=== PATIENT | female | born 1970 ===

== ENCOUNTER 2018-08-27 08:17 | Outpatient (CLI) | payer OTHER | END 2018-08-27 08:18 | disposition home or self-care (01) | LOC: C.LAB 08:17 | DX: D64.9 Anemia, unspecified (principal); N92.4 Excessive bleeding in the premenopausal period ==

== ENCOUNTER 2018-09-28 08:53 | Outpatient (CLI) | payer OTHER | END 2018-09-28 08:54 | disposition home or self-care (01) | LOC: C.USIC 08:54 | DX: N92.4 Excessive bleeding in the premenopausal period (principal) ==